=== PATIENT | female | born 1990 | race Caucasian/White ===

== ENCOUNTER 2021-09-24 01:54 | Emergency (ER) | payer BC ==
[2021-09-24 01:59] VITALS: PULSE 80; RESP 20; TEMP 97.4
--- NOTE | 2021-09-24 02:23 | ED ---
General Adult HPI - General Chief complaint: Neuro Symptoms/Deficit Stated complaint: Lt arm numbness, heart burn Time Seen by Provider: 09/24/21 02:05 Source: patient Mode of arrival: ambulatory Limitations: no limitations - History of Present Illness Initial comments: This patient is a 31-year-old woman who presents to have evaluation for symptoms that she woke with tonight. The patient states that she was awakened from sleep I a heartburn-like feeling. She states she does occasionally have the that. The symptoms did resolve after a few minutes. She also notes that she was having some numbness or tingling to her left fifth digit. She has been having these symptoms intermittently going back a number days to a week. There is no chest pain. There is no dyspnea. No diaphoresis, nausea, vomiting, palpitations or syncope. Patient has never been a smoker. Denies family history. -: minutes(s) Location: left, upper extremity Severity scale (1-10): 0 Consistency: now resolved Improves with: none Worsens with: none Associated Symptoms: denies other symptoms Treatments Prior to Arrival: none - Related Data Allergies Allergy/AdvReac Type Severity Reaction Status Date / Time amoxicillin Allergy Unknown Verified 09/24/21 01:59 Review of Systems ROS Statement: Those systems with pertinent positive or pertinent negative responses have been documented in the HPI. ROS Other: All systems not noted in ROS Statement are negative. Constitutional: Denies: fever, chills Respiratory: Denies: cough, dyspnea Cardiovascular: Denies: chest pain, palpitations, edema, syncope Gastrointestinal: Denies: abdominal pain, nausea, vomiting, diarrhea Genitourinary: Denies: dysuria Musculoskeletal: Denies: back pain Skin: Denies: rash Neurological: Reports: paresthesias. Denies: headache, weakness, numbness Past Medical History Past Medical History: No Reported History History of Any Multi-Drug Resistant Organisms: None Reported Additional Past Surgical History / Comment(s): eye surgery Past Psychological History: No Psychological Hx Reported Smoking Status: Never smoker Past Alcohol Use History: Occasional Past Drug Use History: None Reported General Exam Limitations: no limitations General appearance: alert, in no apparent distress Head exam: Present: atraumatic, normocephalic Eye exam: Present: normal appearance. Absent: scleral icterus, conjunctival injection Neck exam: Present: normal inspection Respiratory exam: Present: normal lung sounds bilaterally. Absent: respiratory distress, wheezes, rales, rhonchi, stridor Cardiovascular Exam: Present: regular rate, normal rhythm, normal heart sounds. Absent: systolic murmur, diastolic murmur, rubs, gallop GI/Abdominal exam: Present: soft. Absent: distended, tenderness, guarding, rebound, rigid, mass Extremities exam: Present: normal inspection, normal capillary refill. Absent: pedal edema, calf tenderness Back exam: Present: normal inspection. Absent: CVA tenderness (R), CVA tenderness (L) Neurological exam: Present: alert Skin exam: Present: warm, dry, intact, normal color. Absent: rash Course Vital Signs 09/24/21 01:55 Temperature 97.4 F L Pulse Rate 80 Respiratory 20 Rate O2 Sat by Pulse 100 Oximetry EKG Findings - EKG Results: EKG: interpreted by ERMD, sinus rhythm (Rate 75 bpm), normal axis, normal QRS, normal ST/T, no acute changes Disposition Clinical Impression: Ulnar nerve compression Disposition: HOME SELF-CARE Condition: Good Instructions (If sedation given, give patient instructions): Paresthesia (ED) Is patient prescribed a controlled substance at d/c from ED?: No Referrals: Florian Lynn MD [Primary Care Provider] - 1-2 days
== END 2021-09-24 03:06 | disposition home or self-care (01) ==
LOC: EC 01:54
DX: G56.22 Lesion of ulnar nerve, left upper limb (principal); Z88.0 Allergy status to penicillin
CPT/HCPCS: 93005; 99284